=== PATIENT | male | born 1940 | race Caucasian/White ===

== ENCOUNTER 2018-10-31 16:31 | Outpatient (CLI) | payer MEDICARE, BC ==
--- NOTE | 2018-10-31 17:39 | RAD ---
PA AND LATERAL CHEST X-RAY 10/31/18 HISTORY: Fever and bronchitis. COMPARISON: None available. FINDINGS: Dual lead left subclavian cardiac pacemaking device noted in place. Linear densities are seen in each lung base which may be related to bibasilar atelectasis. There is mild elevation of the left hemidia phragm. The lungs are otherwise clear. The cardiac silhouette is at the upper limits of normal in siz e. Pulmonary vasculature is within normal limits. Mild degenerative changes seen in the spine. IMPRESSION: 1. Mild bibasilar atelectasis, but no acute cardiopulmonary process is identified. 2. Mild elevation left hemidiaphragm. POS: [facility]
== END 2018-10-31 16:32 | disposition home or self-care (01) ==
LOC: NAV RAD 16:31
PROVIDERS: ATTEND Internal Medicine
DX: R50.81 Fever presenting with conditions classified elsewhere (principal); J40 Bronchitis, not specified as acute or chronic; J98.11 Atelectasis; J98.6 Disorders of diaphragm
CPT/HCPCS: 71046

== ENCOUNTER 2019-05-30 13:42 | Outpatient (CLI) | payer MEDICARE, BC ==
--- NOTE | 2019-05-30 14:03 | RAD ---
EXAM: Two views chest PROVIDED CLINICAL HISTORY: Cough COMPARISON: 10/31/2018 FINDINGS: A dual-lead left subclavian cardiac pacemaker device remains in place. Cardiac silhouette is magnifie d by shallow depth inspiration and portable technique but stable in size from prior exam. Mild elevation left hemidiaphragm is again present. Mild volume loss is present at each lung base. The aisha gs are otherwise clear. No consolidation or pleural fluid is seen. No other interval change. IMPRESSION: 1. Stable chest without evidence of an acute cardiopulmonary process. 2. Bibasilar atelectasis..
== END 2019-05-30 13:43 | disposition home or self-care (01) ==
LOC: NAV RAD 13:42
PROVIDERS: ATTEND Internal Medicine
DX: R05 Cough (principal); J98.11 Atelectasis
CPT/HCPCS: 71046